=== PATIENT | male | born 2000 | race Caucasian/White ===

== ENCOUNTER 2022-01-25 09:51 | Emergency (ER) | payer OTHER ==
[~2022-01-25] VITALS: Ht 177.8 cm; Wt 61.2 kg
[2022-01-25 09:58] VITALS: BP_SYST 84
--- NOTE | 2022-01-25 10:45 | NUR ---
Placed in room 1 . Placed on network technology instructor, blood pressure machine and pulse oximeter. To gown for exam. Side rails up.
[2022-01-25 10:54] LABS: HEMATOCRIT 49.8 % (36-54); HEMOGLOBIN 16.4 g/dL (14.0-18.0); MEAN CORPUSCULAR HEMOGLOBIN 30 pg (27-31); MEAN CORPUSCULAR HGB CONC 33 % (32-36); MEAN CORPUSCULAR VOLUME 91 fL (79.0-98.0); PLATELET COUNT (AUTO) 261 K/uL (130-430); RED BLOOD CELL COUNT(AUTO) 5.45 MIL/uL (4.2-6.2)
[2022-01-25] MEDS ORDERED: DIPH-TET-PERTUS Vaccine 0.5 ML VIAL (ADACEL) I.M. ONE ×2 (11:00→13:53)
--- NOTE | 2022-01-25 11:00 | NUR ---
PORTABLE XRAY AT THE BEDSIDE
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
[2022-01-25 11:09] LABS: ANION GAP 10 (5-15); CALCIUM 8.9 mg/dL (8.4-11.0); CHLORIDE 105 mmol/L (98-107); CREATININE 1.36 mg/dL (0.55-1.30); GLUCOSE 135 mg/dL (70-99); POTASSIUM 3.7 mmol/L (3.5-5.1); SODIUM SERUM 142 mmol/L (136-145); UREA NITROGEN, BLOOD 12 mg/dL (8-21)
[2022-01-25 11:14] LABS: ALANINE AMINOTRANSFERASE 45 U/L (12-78); ALBUMIN 4.4 g/dL (3.4-4.8); ALCOHOL, BLOOD 97 mg/dL (<10); ASPARTATE AMINOTRANSFERASE 39 U/L (10-37); TOTAL BILIRUBIN 0.6 mg/dL (0.0-1.0)
[2022-01-25 11:19] LABS: GFR AFRICAN AMERICAN 84 mL/min (>90)
[2022-01-25 11:20] LABS: ACETAMINOPHEN < 1 ug/mL (1-30)
[2022-01-25] MEDS ORDERED: LIDOCAINE 1%, 20 ML MDV 20 ML ONE (12:48)
[2022-01-25 13:02] LABS: HEMATOCRIT 49.6 % (36-54); HEMOGLOBIN 16.2 g/dL (14.0-18.0); MEAN CORPUSCULAR HEMOGLOBIN 30 pg (27-31); MEAN CORPUSCULAR HGB CONC 33 % (32-36); MEAN CORPUSCULAR VOLUME 91 fL (79.0-98.0); PLATELET COUNT (AUTO) 241 K/uL (130-430); RED BLOOD CELL COUNT(AUTO) 5.43 MIL/uL (4.2-6.2); RED CELL DISTRIBUTION WIDTH 14.1 % (9.0-15.0)
[2022-01-25 13:08] LABS: WHITE BLOOD COUNT (AUTO) 21.2 K/uL (4.8-10.8)
[2022-01-25] MEDS ORDERED: NACL 0.9% 1,000 ML IV ONE (14:15)
--- NOTE | 2022-01-25 14:30 | NUR ---
ER DR. SMALL AT THE BEDSIDE FOR LAC REPAIR
[2022-01-25] MEDS ORDERED: HYDROcodone/ACETAMIN 5-325 MG TAB (NORCO/ VICODIN) PO ONE (14:45)
[2022-01-25] MEDS ORDERED: IBUP-1969 PO (14:55)
[2022-01-25] MEDS ORDERED: HYDR-3917 PO (14:55)
[2022-01-25 15:15] VITALS: BP_SYST 112
--- NOTE | 2022-01-25 15:17 | NUR ---
Patient given written and verbal discharge instructions and verbalizes understanding. ER MD discussed with patient the results and treatment provided. Patient in stable condition. ID arm band removed. IV catheter removed intact and dressing applied, no active bleeding. Rx of NORCO AND IBUPROFEN given. Patient educated on pain management and to follow up with PMD. Pain Scale 0/10. Opportunity for questions provided and answered. Medication side effect fact sheet provided.
== END 2022-01-25 15:15 | disposition home or self-care (01) ==
LOC: SED 09:51
DX: S61.210A Laceration without foreign body of right index finger without damage to nail, initial encounter (principal); S20.221A Contusion of right back wall of thorax, initial encounter; S30.0XXA Contusion of lower back and pelvis, initial encounter; S40.021A Contusion of right upper arm, initial encounter; S09.90XA Unspecified injury of head, initial encounter; Z79.899 Other long term (current) drug therapy; V27.4XXA Motorcycle driver injured in collision with fixed or stationary object in traffic accident, initial encounter; Y93.89 Activity, other specified; Y92.89 Other specified places as the place of occurrence of the external cause; Y99.8 Other external cause status
CPT/HCPCS: 12002; 36415; 70450; 71260; 72125; 73100; 73130; 74177; 76376; 80053; 83051; 84484; 85014; 85048; 85049; 85610; 85730; 86886; 86900; 86901; 93005; 96360; 99285; G0480; J2001; J7030; Q9967; 90715; G0481; G0482